=== PATIENT | male | born 1985 | race Caucasian/White ===

== ENCOUNTER 2022-01-03 16:20 | Emergency (ER) | payer BC ==
[~2022-01-03] VITALS: Ht 172.7 cm; Wt 77.1 kg
[2022-01-03 16:24] VITALS: BP 142/54
--- NOTE | 2022-01-03 16:34 | NUR ---
WALKED IN C/O LEFT FOOT PAIN AND SWELLING ONSET 2 DAYS AGO. PT STATES SIMILAR S/SX FEW YEARS AGO AND WAS EVALUATED BUT WAS DC WITH DX SPRAIN. PT SUSPECTS GOUT. DENIES DX GOUT. PT STATES DENIES FALL OR TRAUMA. VISIBLE SWELLING TO PROXIMAL INSTEP OF THE LEFT FOOT. PT STATES TODAY GOT WORSE TO THE POINT HE CAN'T BEAR WEIGHT TODAY.
[2022-01-03] MEDS ORDERED: KETOROLAC 30 MG/ML VIAL IM ONE (17:00)
--- NOTE | 2022-01-03 17:07 | NUR ---
XR TAKEN, SALAD MAKER AT BEDSIDE FOR BLOODDRAW
[2022-01-03 17:42] LABS: BASOPHILS % (AUTO) 0.7 % (0.0-2.0); EOSINOPHILS # (AUTO) 0.2 K/uL (0-0.4); EOSINOPHILS % (AUTO) 3.4 % (0.0-4.0); HEMATOCRIT 41.3 % (36-52); HEMOGLOBIN 13.9 g/dL (12.0-18.0); LYMPHOCYTES # (AUTO) 1.3 K/uL (2.0-11.5); LYMPHOCYTES % (AUTO) 17.9 % (20.5-51.1); MEAN CORPUSCULAR HEMOGLOBIN 30 pg (27-31); MEAN CORPUSCULAR HGB CONC 34 g/dL (33-37); MEAN CORPUSCULAR VOLUME 89.2 fL (80-94); MONOCYTES # (AUTO) 0.8 K/uL (0.8-1.0); MONOCYTES % (AUTO) 10.8 % (1.7-9.3); NEUTROPHILS % (AUTO) 67.2 % (42.2-75.2); PLATELET COUNT (AUTO) 315 K/uL (140-450); RED BLOOD CELL COUNT(AUTO) 4.63 MIL/uL (4.20-6.10); RED CELL DISTRIBUTION WIDTH 12.6 % (11.6-13.7); WHITE BLOOD COUNT (AUTO) 7.4 K/uL (4.8-10.8)
[2022-01-03 18:01] LABS: ALBUMIN 3.8 g/dL (3.4-5.0); ANION GAP 10.9 (8-16); CARBON DIOXIDE 29.1 mmol/L (21-32); CREATININE 1.3 mg/dL (0.6-1.3); TOTAL BILIRUBIN 0.3 mg/dL (0.0-1.0)
[2022-01-03] MEDS ORDERED: INDO-323 PO (18:24)
--- NOTE | 2022-01-03 18:30 | NUR ---
Patient discharged with v/s stable. Written and verbal after care instructions given and explained. Patient verbalized understanding. Ambulatory with steady gait. All questions addressed prior to discharge. Advised to follow up with PMD.
== END 2022-01-03 18:30 | disposition home or self-care (01) ==
LOC: MED 16:20
DX: M10.9 Gout, unspecified (principal); F17.210 Nicotine dependence, cigarettes, uncomplicated; Z72.89 Other problems related to lifestyle
CPT/HCPCS: 36415; 73630; 80053; 84550; 85025; 85651; 86140; 96372; 99284; J1885; Q0092

== ENCOUNTER 2022-01-12 15:41 | Emergency (ER) | payer BC ==
[~2022-01-12] VITALS: Ht 172.7 cm; Wt 78.1 kg
[~2022-01-12 15:41] MED LIST: INDO-323 PO
[2022-01-12 15:55] VITALS: BP 113/54
[2022-01-12] MEDS ORDERED: [UNRECOGNIZED DRUG - CODE] PO (16:33)
--- NOTE | 2022-01-12 16:35 | NUR ---
pt given crutches and returned safe demonstration.
== END 2022-01-12 16:47 | disposition home or self-care (01) ==
LOC: MED 15:41
DX: M25.572 Pain in left ankle and joints of left foot (principal); Z72.89 Other problems related to lifestyle
CPT/HCPCS: 99283

== ENCOUNTER 2022-01-31 09:00 | Emergency (ER) | payer BC ==
[~2022-01-31] VITALS: Ht 172.7 cm; Wt 76.7 kg
[~2022-01-31 09:00] MED LIST changes: +[UNRECOGNIZED DRUG - CODE] PO
[2022-01-31 09:21] VITALS: BP 126/76
--- NOTE | 2022-01-31 09:23 | NUR ---
AMBULATED WITH USE OF PERSONAL CRUTCHES TO BED 5
--- NOTE | 2022-01-31 09:36 | NUR ---
36/M PRESENTS TO ED WITH C/O EPISODES OF LEFT FOOT AND ANKLE PAIN X4 MONTHS, STATING HE WAS SEEN TWICE AND DX WITH GOUT BUT REPORTS SYMPTOMS WORSENING. DENIES INJURY OR TRAUMA. PATIENT REPORTS HE HAS FOLLOWED UP WITH A SUBSTATION ENGINEER INSTRUCTED BUT STATES "I WANT AN ACCURATE DIAGNOSIS." NO SIGNS OF DEFORMITY OR SWELLING AT SITE, PATIENT AMBULATORY UPON ARRIVAL WITH USE OF PERSONAL CRUTCHES.
--- NOTE | 2022-01-31 10:00 | NUR ---
36YO MALE PT C/O INCREASED R FOOT PAIN XYESTERDAY. STATES PAIN AT MOST WHEN BEARNING WEIGHT . REPORTS INITIAL PAIN STARTED 4MONTHS AGO AND TOLD BY PCP HE HAD GOUT/TENDINITIS. MILD RELIEF AFTER TAKING PREDNISONE, CURRENTLY OUT OF RX. AMBULATORY USING CRUTCHES. LIMITED ROM W/ DISCOMFORT. PT AAOX4, HOB POSITIONED PER COMFORT. HX: GOUT NKA
--- NOTE | 2022-01-31 10:30 | NUR ---
SWEETIE BARRON AT BEDSIDE FOR EVALUATION
[2022-01-31] MEDS ORDERED: KETOROLAC 30 MG/ML VIAL IM ONE (10:35)
[2022-01-31] MEDS ORDERED: predniSONE 20 MG TAB PO ONE (10:35)
[2022-01-31] MEDS ORDERED: IBUP-2213 PO (10:53)
[2022-01-31] MEDS ORDERED: PRED20TA5 PO (10:53)
--- NOTE | 2022-01-31 11:11 | NUR ---
Patient discharged with v/s stable. Written and verbal after care instructions FOR LOW PURINE DIET, ANKLE PAIN AND URIC ACID TEST given and explained. Patient alert, oriented and verbalized understanding of instructions. Ambulatory USING CRUTCHES . All questions addressed prior to discharge. ID band removed. Patient advised to follow up with PMD. Rx of IBUPROFEN AND IBUPROFEN given. Opportunity to ask questions provided and answered.
== END 2022-01-31 11:11 | disposition home or self-care (01) ==
LOC: MED 09:00
DX: M10.9 Gout, unspecified (principal)
CPT/HCPCS: 96372; 99283; J1885; J7512

== ENCOUNTER 2023-09-03 07:20 | Emergency (ER) | payer BC ==
[~2023-09-03] VITALS: Ht 172.7 cm; Wt 76.7 kg
[~2023-09-03 07:20] MED LIST changes: +IBUP-2213 PO; +PRED20TA5 PO
[2023-09-03 07:32] VITALS: BP 112/73; PULSE 77; RESP 18; TEMP 98.3; O2SAT 98
[2023-09-03] MEDS: DEXAMETHASONE 4 MG/ML VIAL PO ONE (08:18)
[2023-09-03] MEDS: KETOROLAC 30 MG/ML VIAL IM ONE (08:18)
[2023-09-03] MEDS: ALBUTEROL HFA MDI 90 MCG/ACTUATION 8 GM INH ONE (08:20)
[2023-09-03 08:25] VITALS: PULSE 72; RESP 16; O2SAT 100; O2SAT 99
[2023-09-03] MEDS ORDERED: FLONAS NS (08:45)
[2023-09-03] MEDS ORDERED: IBUP-2213 PO (08:45)
[2023-09-03] MEDS ORDERED: BENZ200C4 PO (08:45)
[2023-09-03 09:15] VITALS: BP 114/85; PULSE 81; RESP 16; TEMP 99; O2SAT 100
== END 2023-09-03 09:15 | disposition home or self-care (01) ==
LOC: MED 07:20
DX: J06.9 Acute upper respiratory infection, unspecified (principal); Z79.899 Other long term (current) drug therapy
CPT/HCPCS: 71045; 94664; 96372; 99283; J1100; J1885; Q0092